=== PATIENT | female | born 1945 | race Caucasian/White ===

== ENCOUNTER 2018-10-27 22:40 | Emergency (ER) | payer MEDICARE, BC ==
[2018-10-27] MEDS ORDERED: GI Cocktail Oral Solution 30 ML PO ONE (23:04)
[2018-10-27] MEDS ORDERED: Sodium Chloride 0.9% 10 ML Syringe FLUSH PRN (23:04)
[2018-10-27] MEDS ORDERED: Morphine 4 MG/ML Syringe IVPUSH ONE (23:45)
[2018-10-28 00:05] LABS: CHLORIDE,CL 105 mmol/L (98-107); SODIUM,NA 143 mmol/L (136-145)
[2018-10-28 00:06] LABS: ANION GAP 16.7 mmol/L (10-20)
[2018-10-28] MEDS ORDERED: HYDROmorphone 1 MG/ML Syringe IVPUSH ONE (00:22)
[2018-10-28] MEDS ORDERED: Take Home: Acetaminophen/HYDROcodone 325-10 MG, 5 Tab Pack PO ONE (00:27)
--- NOTE | 2018-10-28 00:30 | EDM.PDOC ---
ED HPI GENERAL MEDICAL PROBLEM - General Chief Complaint: General Stated Complaint: epigastric pain Time Seen by Provider: 10/27/18 23:00 Source of Information: Reports: Patient History Limitations: Reports: No Limitations - History of Present Illness INITIAL COMMENTS - FREE TEXT/NARRATIVE: PtJammie presents to ER with complaints of epigastric pain. She states that the discomfort started after eating dinner tonight. She states that she still has her gallbladder. She states that she thinks it would "feel better if I could burp". Denies any substernal chest pain. No shortness of breath. She states that she is nauseated as well. She states that the discomfort is worse with palpation of the abdomen. Denies any bloody stools. No melena, hematochezia, or hematemesis. She denies any radiation into the jaw, arms, neck, back or shoulders. She states that she has never had pain like this in the past. She states that she did eat a fatty meal prior to the pain starting. Denies any viviana colored stools or dark urine. Onset: Today Location: Reports: Abdomen Quality: Reports: Burning, Pressure, Sharp, Stabbing Worsens with: Reports: Eating Associated Symptoms: Reports: Nausea/Vomiting. Denies: Shortness of Breath, Weakness Epigastric Pain Score (Numeric/FACES): 8 - Related Data Allergies Allergy/AdvReac Type Severity Reaction Status Date / Time No Known Allergies Allergy Verified 10/27/18 22:44 Home Meds: Home Meds Citalopram Hydrobromide [Celexa] 40 mg PO DAILY 10/27/18 [History] Melatonin 2 tab PO BEDTIME PRN 10/27/18 [History] traZODone HCl [Trazodone HCl] 0.5 tab PO BEDTIME 10/27/18 [History] Past Medical History Psychiatric History: Reports: Depression Oncologic (Cancer) History: Reports: Other (See Below) Other Oncologic History: endometrial - Past Surgical History Female Surgical History: Reports: Hysterectomy Social & Family History - Tobacco Use Smoking Status *Q: Former Smoker Used Tobacco, but Quit: Yes Month/Year Tobacco Last Used: 1964 ED ROS GENERAL - Review of Systems Review Of Systems: See Below Constitutional: Reports: No Symptoms HEENT: Reports: No Symptoms Respiratory: Reports: No Symptoms Cardiovascular: Reports: Chest Pain Endocrine: Reports: No Symptoms GI/Abdominal: Reports: No Symptoms, Abdominal Pain, Nausea. Denies: Hematemesis , Hematochezia, Melena : Reports: No Symptoms Musculoskeletal: Reports: No Symptoms Skin: Reports: No Symptoms Neurological: Reports: No Symptoms Psychiatric: Reports: No Symptoms Hematologic/Lymphatic: Reports: No Symptoms Immunologic: Reports: No Symptoms ED EXAM, GENERAL - Physical Exam Exam: See Below Exam Limited By: No Limitations General Appearance: Alert, WD/WN, No Apparent Distress Head: Atraumatic, Normocephalic Respiratory/Chest: No Respiratory Distress, Lungs Clear, Normal Breath Sounds, No Accessory Muscle Use, Chest Non-Tender Cardiovascular: Normal Peripheral Pulses, Regular Rate, Rhythm, No Edema, No Gallop, No JVD, No Murmur, No Rub Peripheral Pulses: 4+: Radial (L) GI/Abdominal: Normal Bowel Sounds, Soft, Tender (Tender in epigastrium/LUQ, worse with palpation.). No: Distended, Rebound, Mass (Female) Exam: Deferred Rectal (Female) Exam: Deferred Back Exam: Normal Inspection, Full Range of Motion Extremities: Normal Inspection, Normal Range of Motion, Non-Tender, No Pedal Edema, Normal Capillary Refill Neurological: Alert, Oriented, CN II-XII Intact, Normal Cognition, Normal Gait, Normal Reflexes, No Motor/Sensory Deficits Psychiatric: Normal Affect, Normal Mood Skin Exam: Warm, Dry, Intact, Normal Color, No Rash Course - Vital Signs Last Recorded V/S: Last Vital Signs Temp 36.3 C 10/27/18 22:44 Pulse 84 10/27/18 22:44 Resp 18 10/27/18 22:44 BP 166/83 H 10/27/18 22:44 Pulse Ox 98 10/27/18 22:44 - Orders/Labs/Meds Orders: Active Orders 24 hr Category Date Time Status EKG Documentation Completion [RC] STAT Care 10/27/18 23:03 Active Abdomen Series w Chest 1V [CR] Stat Exams 10/27/18 23:24 Taken Sodium Chloride 0.9% [Saline Flush] Med 10/27/18 23:04 Active 10 ml FLUSH ASDIRECTED PRN Peripheral IV Insertion Adult [OM.PC] Routine Oth 10/27/18 23:05 Ordered Medication Orders Sodium Chloride (Saline Flush) 10 ml FLUSH ASDIRECTED PRN PRN Reason: Keep Vein Open Last Admin: 10/27/18 23:16 Dose: 10 ml Labs: Laboratory Tests 10/27/18 10/27/18 10/27/18 Range/Units 23:31 23:31 23:31 WBC 7.1 (4.0-10.0) x10^3/uL RBC 4.07 (4.00-5.50) x10^6/uL Hgb 12.5 (12.0-16.0) g/dL Hct 37.9 (33.0-47.0) % MCV 93.1 H (78.0-93.0) fL MCH 30.7 (26.0-32.0) pg MCHC 33.0 (32.0-36.0) g/dL RDW Coeff of Sally 13.2 (10.0-15.0) % Plt Count 303 (130-400) x10^3/uL Neut % (Auto) 77.5 (50.0-80.0) % Lymph % (Auto) 15.5 L (25.0-50.0) % [place] % (Auto) 6.0 (2.0-11.0) % Eos % (Auto) 0.4 (0.0-4.0) % Baso % (Auto) 0.6 (0.2-1.2) % PT 11.3 (10.0-12.8) SEC INR 1.0 L (2.0-3.5) Sodium 143 (136-145) mmol/L Potassium 3.7 (3.5-5.1) mmol/L Chloride 105 (98-107) mmol/L Carbon Dioxide 25 (21-32) mmol/L Anion Gap 16.7 (10-20) mmol/L BUN 16 (7-18) mg/dL Creatinine 0.7 (0.55-1.02) mg/dL Est Cr Clr Drug Dosing TNP Estimated GFR (MDRD) > 60 Glucose 131 H (74-106) mg/dL Calcium 9.3 (8.5-10.1) mg/dL Corrected Calcium 9.30 (8.5-10.1) mg/dL Phosphorus 3.1 (2.6-4.7) mg/dL Magnesium 1.8 (1.8-2.4) mg/dL Total Bilirubin 0.7 (0.2-1.0) mg/dL AST 19 (15-37) U/L ALT 23 (14-59) U/L Alkaline Phosphatase 99 (46-116) U/L Troponin I < 0.017 (<=0.056) ng/mL C-Reactive Protein 1.2 H (<=0.9) mg/dL Total Protein 7.3 (6.4-8.2) g/dL Albumin 4.0 (3.4-5.0) g/dL Globulin 3.3 Albumin/Globulin Ratio 1.21 Amylase (25-115) U/L Lipase (73-393) U/L TSH, Ultra Sensitive 3.398 (0.358-3.74) uIU/mL 10/27/18 Range/Units 23:31 WBC (4.0-10.0) x10^3/uL RBC (4.00-5.50) x10^6/uL Hgb (12.0-16.0) g/dL Hct (33.0-47.0) % MCV (78.0-93.0) fL MCH (26.0-32.0) pg MCHC (32.0-36.0) g/dL RDW Coeff of Sally (10.0-15.0) % Plt Count (130-400) x10^3/uL Neut % (Auto) (50.0-80.0) % Lymph % (Auto) (25.0-50.0) % [place] % (Auto) (2.0-11.0) % Eos % (Auto) (0.0-4.0) % Baso % (Auto) (0.2-1.2) % PT (10.0-12.8) SEC INR (2.0-3.5) Sodium (136-145) mmol/L Potassium (3.5-5.1) mmol/L Chloride (98-107) mmol/L Carbon Dioxide (21-32) mmol/L Anion Gap (10-20) mmol/L BUN (7-18) mg/dL Creatinine (0.55-1.02) mg/dL Est Cr Clr Drug Dosing Estimated GFR (MDRD) Glucose (74-106) mg/dL Calcium (8.5-10.1) mg/dL Corrected Calcium (8.5-10.1) mg/dL Phosphorus (2.6-4.7) mg/dL Magnesium (1.8-2.4) mg/dL Total Bilirubin (0.2-1.0) mg/dL AST (15-37) U/L ALT (14-59) U/L Alkaline Phosphatase (46-116) U/L Troponin I (<=0.056) ng/mL C-Reactive Protein (<=0.9) mg/dL Total Protein (6.4-8.2) g/dL Albumin (3.4-5.0) g/dL Globulin Albumin/Globulin Ratio Amylase 34 (25-115) U/L Lipase 105 (73-393) U/L TSH, Ultra Sensitive (0.358-3.74) uIU/mL Meds: Medications Generic Name Dose Route Start Last Admin Trade Name Freq PRN Reason Stop Dose Admin Sodium Chloride 10 ml 10/27/18 23:04 10/27/18 23:16 Saline Flush FLUSH 10 ml ASDIRECTED PRN Administration Keep Vein Open Discontinued Medications Generic Name Dose Route Start Last Admin Trade Name Freq PRN Reason Stop Dose Admin Hydrocodone Bitart/Acetaminophen 1 packet 10/28/18 00:27 10/28/18 00:31 Take Home: Acetaminophen/Hydrocodone 325-10mg PO 10/28/18 00:28 1 packet ONETIME ONE Administration Al Hydroxide/Mg Hydroxide 30 ml 10/27/18 23:04 10/27/18 23:12 Gi Cocktail PO 10/27/18 23:05 30 ml ONETIME ONE Administration Hydromorphone HCl 1 mg 10/28/18 00:22 10/28/18 00:28 Dilaudid IVPUSH 10/28/18 00:23 1 mg ONETIME ONE Administration Morphine Sulfate 4 mg 10/27/18 23:45 10/27/18 23:49 Morphine IVPUSH 10/27/18 23:46 4 mg ONETIME ONE Administration - Radiology Interpretation Free Text/Narrative:: flat and upright abdominal series showed large stool throughout entire colon. No free air. Chest x-ray is negative. Departure - Departure Time of Disposition: 01:00 Disposition: Home, Self-Care 01 Clinical Impression: Constipation, Epigastric pain - Discharge Information Instructions: Acetaminophen; Hydrocodone tablets or capsules Referrals: Jacob Delgadillo MD [Primary Care Provider] - Forms: ED Department Discharge Additional Instructions: Radiology will contact you tomorrow regarding a gallbladder ultrasound on . [place] 10/325mg 1 every 4-6 hours as needed for pain Start Miralax 17 gm once daily Increase intake of fluids Magnesium Citrate 1/2 bottle tomorrow AM. Repeat if no BM in 6 hours. This medication is available over the counter, as is the miralax. If you have worsening discomfort, fever, chills, lightheadedness, or shortness of breath, return to ER right away. Otherwise follow-up in clinic in 10-14 days for recheck. - My Orders Last 24 Hours: My Active Orders 10/27/18 23:03 EKG Documentation Completion [RC] STAT 10/27/18 23:04 Sodium Chloride 0.9% [Saline Flush] 10 ml FLUSH ASDIRECTED PRN 10/27/18 23:05 Peripheral IV Insertion Adult [OM.PC] Routine 10/27/18 23:24 Abdomen Series w Chest 1V [CR] Stat - Assessment/Plan Last 24 Hours: My Active Orders 10/27/18 23:03 EKG Documentation Completion [RC] STAT 10/27/18 23:04 Sodium Chloride 0.9% [Saline Flush] 10 ml FLUSH ASDIRECTED PRN 10/27/18 23:05 Peripheral IV Insertion Adult [OM.PC] Routine 10/27/18 23:24 Abdomen Series w Chest 1V [CR] Stat Plan: Radiology will contact you tomorrow regarding a gallbladder ultrasound on . [place] 10/325mg 1 every 4-6 hours as needed for pain Start Miralax 17 gm once daily Increase intake of fluids Magnesium Citrate 1/2 bottle tomorrow AM. Repeat if no BM in 6 hours. This medication is available over the counter, as is the miralax. If you have worsening discomfort, fever, chills, lightheadedness, or shortness of breath, return to ER right away. Otherwise follow-up in clinic in 10-14 days for recheck.
--- NOTE | 2018-10-28 08:17 | CR ---
[id number] RAD/RAD Abdomen 3V Exam: RAD Abdomen 3V Clinical Data: ABDOMINAL PAIN COMPARISON: NO PREVIOUS SIMILAR EXAM IS AVAILABLE FINDINGS: There are surgical changes. There is no bowel obstruction or free air. The lungs are clear. The cardiac silhouette is enlarged. IMPRESSION: NO ACUTE PROCESS SEEN ON PLAIN FILMS Ravinder Ramirez MD 10/28/18 0815 Thank you for allowing us to participate in the care of your patient.
== END 2018-10-28 00:56 | disposition home or self-care (01) ==
LOC: VM.ED 22:40
DX: K59.00 Constipation, unspecified (principal); R10.13 Epigastric pain; Z87.891 Personal history of nicotine dependence
CPT/HCPCS: 36415; 74022; 80053; 82150; 83690; 83735; 84100; 84443; 84484; 85025; 85610; 86140; 93005; 96374; 96375; 99283-GF; 99284-25; A9270-GY; J1170; J2270